=== PATIENT | female | born 1960 | race Asian ===

== ENCOUNTER → 2018-02-25 10:58 | Outpatient (CLI) | payer OTHER, SELFPAY ==
--- NOTE | 2018-02-25 | IMM_PTH ---
PATIENT: ALCON LORENZO LOC: [facility] U#:[id number] AGE/SX: 65/F ROOM: RE02/25/[address]: Dr. Ariela Riggs MD : 1960 BED: DIS: SPEC #: [id number] RECD: 02/26/18 12:23 STATUS: AMITA REQ #: [id number] BOGDAN: 02/25/18 00:[address]: Ariela Riggs DEPT: IMMUNOHISTOCHEMISTRY RECD BY: Renee Donahue ENTERED: 02/26/18 12:25 SP TYPE: IMMUNO OTHR DR: Dr. Goldie Van MD Tissues: Left breast, NOS Procedures: CALPONIN-1 (add) CK8 (add) E-CAD (add) HER2 TORIBIO (add) CA (add) P40 (add) ER (initial) PHYSICIAN & INSTITUTION [place] [id number] SPECIMEN INFORMATION: Tissue Source: Left breast Clinical Info: Left upper inner quadrant posterior microcalcifications Specimen Number: [id number] #2 CPT code: 89016, 13986 x3, 73551 x3 METHODOLOGY: Deparaffinized sections of prefer/formalin-fixed tissue or PAP/DQ stained slides are incubated with monoclonal/polyclonal antibodies/oligonucleotide probes. Localization is made via biotin free immunoperoxidase method. Appropriate controls are performed and reacted as expected. Results on target cell population are indicated in the following table: RESULTS: ANTIBODY / CLONE RESULT Block #2 E-Cad (ECH-6) positive CK8 (38wnumK11) positive P40 (BC28) positive Calponin-1 (YX364V) positive MORPHOMETRIC ANALYSIS ER (clone 6F11) positive (80%, moderate) CA (clone 16/1E2) positive (66%, weak to moderate) Her-2Neu (clone CB11) negative (1+) The prognostic test for HER2 is performed on formalin-fixed paraffin embedded tissue. A 3+ (positive) staining pattern is defined as intense, homogeneous, complete, circumferential membranous staining in >10% of contiguous tumor cells. A similar weak (2+) staining pattern is interpreted as equivocal. TRINITY follow-up testing is recommended for all equivocal cases. Positivity/negativity for ER/CA is reported if > or < 1% of the tumor cells are immuno- reactive, respectively. The ASCO/CAP criteria is used for scoring. Reference: Journal of Clinical Oncology, 2013; 31:4802-7526 & 2010; 16:2593-0939. Duration of fixation: 8 Hrs; Sample Adequate: Yes. These assays have not been validated on decalcified tissues. Results should be interpreted with caution given the likelihood of false negativity on decalcified specimens. These tests were developed and their performance characteristics determined by [facility]. They may not have been cleared or approved by the [place].S. Food and Drug Administration. The FDA has determined that such clearance or approval is not necessary. 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 SJ:kike 02/27/18
--- NOTE | 2018-02-25 | BRBX_PTH ---
PATIENT: ALCON LORENZO LOC: [facility] U#:[id number] AGE/SX: 65/F ROOM: RE02/25/[address]: Dr. Ariela Riggs MD : 1960 BED: DIS: SPEC #: [id number] RECD: 02/25/18 13:15 STATUS: AMITA GERMAINE #: [id number] BOGDAN: 02/25/18 00:[address]: Ariela Riggs DEPT: SURGICAL PATHOLOGY RECD BY: Que Rosas ENTERED: 02/25/18 13:16 SP TYPE: BREAST BX OT DR: Dr. Goldie Van MD Tissues: Left breast, NOS Procedures: Surgery Specimen Level IV HEADER OPERATION: Left stereotactic breast biopsy PRE-OP DIAGNOSIS: Left upper inner quadrant for posterior microcalcifications TISSUE SUBMITTED: Left breast core tissue ISCHEMIC TIME: 2 minutes FIXATION TIME: 8 hours MICROSCOPIC DIAGNOSIS Left breast, upper inner quadrant, posterior microcalcifications, stereotactic core biopsy: Ductal carcinoma in situ with the following characteristics: Pattern ? solid and comedo. Nuclear grade ? high nuclear grade. Necrosis ? present, central (expansive?comedo? necrosis). Calcification ? present. ANAMARIA:kike 02/26/18 COMMENT Immunohistochemistry ([id number]) supports the above diagnosis. ER/ND/Yqi4aeo studies are being performed on sections of tumor and the results from this study will be reported separately ([id number]). MICROSCOPIC DESCRIPTION Slides are reviewed. GROSS DESCRIPTION Received is one container labeled with the patient's name and not further designated. The specimen consists of multiple elongated fragments of boyer-yellow fibroadipose tissue that in aggregate measure 4 x 3 x 0.3 cm. The entire specimen is submitted in two cassettes. / ANAMARIA:kike 02/25/18 TC:0 CPT: 64600
--- NOTE | 2018-02-25 11:04 | BI_ITS ---
STEREOTACTIC CORE BIOPSY REASON FOR EXAM: Female, 58 years old. Microcalcifications in the deep medial aspect of the left breast. PERTINENT HISTORY: Non-contributory. COMPARISON: None. TECHNIQUE: (All elements of maximal sterile barrier technique followed, including US elements as applicable) Upon arrival to the breast imaging department the patient's identification was confirmed and the LEFT breast was marked according to time-out protocol. Stereotactic core biopsy and clip placement, to include potential risks and complications, was explained in full to the patient. Written and verbal consent were obtained prior to initiation of the procedure. The patient was placed in prone position on the stereotactic biopsy table with the LEFT breast in cranial caudad compression. Health Facilities Surveyor and stereotactic views were then obtained for targeting. The LEFT breast was prepped and draped in standard sterile fashion and local anesthesia was obtained with 1% buffered lidocaine. A small dermatotomy was then made to introduce the core biopsy needle. Multiple core samples were obtained with a 8 gauge vacuum assisted core biopsy needle. The specimen's were radiographed to determine the presence of calcifications and submitted in formalin for pathology. A titanium clip was then deployed into the biopsy cavity. Upon completion of the procedure hemostasis was obtained and sterile dressing was applied. The patient tolerated the entire procedure without immediate complication and was discharged from the breast imaging department in good condition. BI/Stereo Breast Biopsy [facility]st [facility] IMPRESSION: Stereotactic core biopsy for microcalcifications in the LEFT breast without complication. Electronically Signed: Anibal Dunn MD at 12:55 EDT Tel [phone], Service support ,
== END ==
PROVIDERS: Family Provider Internal Medicine; PCP Internal Medicine; Visit Provider Surgery
DX: R92.0 Mammographic microcalcification found on diagnostic imaging of breast (principal)
CPT/HCPCS: 19081; 88305; 88341; 88342; J7050